=== PATIENT | female | born 1970 | race Caucasian/White ===

== ENCOUNTER 2019-03-22 14:49 | Inpatient (IN) ==
[2019-03-22] MEDS ORDERED: LEVAQUIN 500 MG/D5W 500 MG/100 ML IVPB IV SCH (17:00)
[2019-03-22] MEDS: DILAUDID IV PRN ×2 (17:48→23:59)
[2019-03-22] MEDS: NS 1,000 ML IV SCH (17:49)
--- NOTE | 2019-03-22 18:52 | CONSULTATION ---
DATE OF CONSULTATION: 03/22/2019 ATTENDING AND REFERRING PHYSICIAN: Radha Michel MD HISTORY OF PRESENT ILLNESS: This 49-year-old female states she has had intermittent flank pain for several days. She states that about 5 days ago she had pain and noted blood in the urine. She states she has been feeling worse over the last few days. She had a CT scan at another facility that revealed a moderate right hydroureteronephrosis down to a stone in the distal ureter about 3 mm in diameter. There was also perinephric stranding and possible right pyelonephritis. There were also bilateral lower lung infiltrates, consistent with possible pneumonia or sympathetic effusion from the right pyelonephritis. The patient states she feels a little better, but is still having intermittent flank pain. She states it is not as severe as it was. She denies any previous history of urological problems. She has had no kidney stones, previous blood in the urine, or problems with urinary tract infections. She has had no previous urologic surgery. PAST MEDICAL HISTORY: Migraine headaches, hypothyroidism. CURRENT MEDICATIONS: Documented on the chart. PAST SURGICAL HISTORY: Breast reduction surgery, breast biopsies, tonsillectomy, endometrial curettage for menorrhagia. SOCIAL HISTORY: No tobacco use. Occasional alcohol use. ALLERGIES: No known drug allergies. REVIEW OF SYSTEMS: She has no history of diabetes, hypertension, strokes, seizures, or pulmonary or bowel problems. PHYSICAL EXAMINATION: General: A normally developed, well-nourished, age- apparent, white female, oriented in all ways and cooperative. HEENT: Normal for age. Lungs: Clear. Cardiovascular: Regular rate and rhythm. Abdomen: Protuberant, soft, nontender. No hepatosplenomegaly or masses. Normal bowel sounds. Back: No CVA tenderness. Genitourinary: Exam is deferred until surgery. Extremities: No clubbing, cyanosis, or edema. Neurologic: No focal deficits. DIAGNOSTIC DATA: Laboratory evaluation is pending. IMPRESSION: Right distal ureteral stone with possible right pyelonephritis. Recommend cystoscopic exam, right ureteroscopy, and removal of the small stone if present and place right double-J stent. This planned procedure, benefits versus risks, and possible complications, including, but not limited to, bleeding, infection, not finding a stone, not being able to place the stent, and need for further surgery were discussed. She seems to understand and desires to proceed. cc: MD Bayron Faye MD MTDD
[2019-03-22] MEDS ORDERED: SODIUM CHLORIDE 0.9% INJ SCH (19:45)
[2019-03-22] MEDS: PEPCID IV SCH (19:59)
[2019-03-22] MEDS: ZOFRAN IV PRN ×2 (19:59→23:59)
--- NOTE | 2019-03-22 20:11 | HISTORY AND PHYSICAL ---
CHIEF COMPLAINT: Right flank pain, off and on for several days. HISTORY OF PRESENT ILLNESS: She is a 49-year-old white female, who came to our office for the last 1 week with the above symptoms. Flat/upright of the abdomen showed some constipation. No stones visible. Patient has elevated white cell count as well as blood in the urine. She was treated as an outpatient with ultrasound that showed moderate hydronephrosis on the right side. Subsequent CT renal stone search showed with moderate right hydronephrosis with pyelonephritis and 3 mm stone in the distal ureter. The patient was admitted to the hospital with IV antibiotics, IV fluids, and strained the urine. Urology consult on-call was obtained with Dr. Rincon. PAST MEDICAL HISTORY: Allergic rhinitis, hypothyroidism, metabolic syndrome, abnormal mammography, biopsy was negative in 2013. PAST SURGICAL HISTORY: Tonsillectomy, reduction mammoplasty, tubal ligation, MEDICINES: BuSpar 10 mg p.o. b.i.d., Synthroid 50 mcg daily, Xyzal 5 mg daily. ALLERGIES: Not known. SOCIAL HISTORY: , 2 kids. No smoking. Socially drinks alcohol. Living in [place]. 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 FAMILY HISTORY: Father of heart disease. Mom of car accident. Grandparents as maternal grandmother had breast cancer. HEALTH MAINTENANCE: Flu vaccine 2017. Mammography November 2017. Pap smear April 2014. REVIEW OF SYSTEMS: HEENT: No headache. No vision problem. No earache. No sore throat. Neck: No goiter. No lymphadenopathy. No bruit. Cardiopulmonary: No chest pain, shortness of breath, PND, orthopnea. Gastrointestinal: Right flank pain radiating to the groin. Musculoskeletal: No swelling of feet. No joint pain. Neurologic: No focal symptoms or weakness. PHYSICAL EXAMINATION: VITAL SIGNS: Temperature is 99.9 degrees, pulse is 87, blood pressure is 115/74. HEIGHT/WEIGHT: 5 feet 4 inches, 161 pounds. HEENT: Atraumatic, normocephalic. Pupils equal, reacting to light. TMs are normal. Nose and throat within normal limits. NECK: Supple. No lymphadenopathy. No goiter. CHEST: Bilateral air entry. HEART: Sounds are regular. ABDOMEN: Belly is soft. Tender in the right flank area. EXTREMITIES: No peripheral edema or cyanosis. NEUROLOGICAL: No obvious neurological deficits. INVESTIGATIONS: Still pending. ASSESSMENT AND PLAN: A 49-year-old white female admitted to the hospital with right-sided hydronephrosis with impending pyelonephritis with a distal 3 mm stone in the ureter. Plan is IV fluids, strain the urine, Dilaudid for pain, Zofran for nausea, and clear liquid diet, Dr. Rincon consult, and IV antibiotics with Levaquin, Flomax 0.4 mg daily, and reconcile home medications. We will follow up. cc: Bayron Michel MD MTDD
[2019-03-23] MEDS: NS 1,000 ML IV SCH (06:19)
[2019-03-23] MEDS: ZOFRAN IV PRN (06:19)
[2019-03-23] MEDS: DILAUDID IV PRN (06:20)
[2019-03-23] MEDS ORDERED: DIPRIVAN 1% ONE (07:28)
[2019-03-23] MEDS ORDERED: XYLOCAINE-MPF 2% ONE (07:29)
[2019-03-23 07:42] LABS: BASO# 0.04 X1000 (0.0-0.2); BASO% 0.3 % (0.0-0.8); EOS# 0.06 X1000 (0.0-0.7); EOS% 0.5 % (0.0-10.0); HEMATOCRIT 31.6 % (37.0-47.0); HEMOGLOBIN 10.7 g/dL (12.0-16.0); IMM GRAN# 0.15 X1000 (0.0-0.04); IMM GRAN% 1.1 % (0.0-0.5); LYMPH# 1.38 X1000 (1.2-3.4); LYMPH% 10.6 % (20.5-51.1); MCH 31.8 PG (27-31); MCHC 33.9 g/dL (33-37); MCV 93.8 FL (81-99); MONO# 1.78 X1000 (0.11-0.59); MONO% 13.6 % (1.7-9.3); MPV 10.6 FL (7.4-10.4); NEUT# 9.65 X1000 (1.4-6.5); NEUT% 73.9 % (42.2-75.2); PLT 268 X1000 (130-400); RBC 3.37 XMIL (4.2-5.4); RDW 12.6 % (11.5-14.5); WBC 13.06 X1000 (4.8-10.8)
[2019-03-23] MEDS ORDERED: TORADOL ONE (08:00)
[2019-03-23] MEDS ORDERED: DECADRON ONE (08:00)
[2019-03-23] MEDS ORDERED: ZOFRAN ONE (08:00)
[2019-03-23 08:13] LABS: AGAP 9; BUN 14 mg/dL (8-22); CALCIUM 8.4 mg/dL (8.8-10.2); CHLORIDE 100 mmol/L (98-107); COSMO 274; CREATININE 0.9 mg/dL (0.5-0.9); ESTIMATED GFR > 60; GLUCOSE 99 mg/dL (70-104); POTASSIUM 3.5 mmol/L (3.5-5.1); SODIUM 137 mmol/L (136-145); TCO2 28 mmol/L (25-35)
[2019-03-23] MEDS ORDERED: FLOMAX PO SCH (09:00)
[2019-03-23] MEDS ORDERED: DITROPAN PO PRN ×2 (09:17→09:19)
[2019-03-23] MEDS ORDERED: NORCO-7.5 PO PRN ×2 (09:18→09:26)
[2019-03-23] MEDS: PEPCID IV SCH (09:27)
--- NOTE | 2019-03-23 10:09 | OPERATIVE NOTE ---
PROCEDURE DATE: 03/23/2019 SURGEON: Dr. José Rincon. PREOPERATIVE DIAGNOSIS: Right flank pain and right pyelonephritis and right distal ureteral stone. POSTOPERATIVE DIAGNOSIS: Right flank pain and right pyelonephritis and spontaneously passed right ureteral stone. ANESTHESIA: General via laryngeal mask. PROCEDURE PERFORMED: Cystoscopic exam, right ureteroscopy, place right double-J stent. ANESTHESIA: General via laryngeal mask. FINDINGS: Cystoscopic exam: Urethra--greater than 21 Gambian, without strictures. Bladder-- normal ureteral orifices bilaterally. There is a cystocele, so the bladder has dropped somewhat. There are no papillary lesions, no trabeculations, no diverticula. Right ureteroscopy reveals edema just above the right ureterovesical junction with the ureter markedly dilated behind this area. The ureter was also very tortuous. There were no stones or stone fragments visualized from the ureterovesical junction all the way up to just below the ureteropelvic junction. The scope would not advance all the way into the renal pelvis because of a large loop the ureter took as part of its tortuosity. exam: Normal external female. Normal mucosa. Significant cystocele. Palpably normal cervix and uterus. No adnexal masses. There were large hemorrhoids noted. INDICATION FOR PROCEDURE: This 49-year-old female had right flank pain and significant fevers and not feeling well. A CT scan with oral and IV contrast revealed significant right hydroureteronephrosis down to a small stone in the distal ureter. DESCRIPTION OF PROCEDURE: After informed consent was obtained from the patient and her receiving IV antibiotics, she was taken to the main OR cystoscopy room, placed in the supine position. General anesthesia via laryngeal mask was achieved. She was then placed in the low lithotomy position, and prepped and draped in the usual sterile fashion for cystoscopic exam. A 21-Gambian sheath cystoscope was passed through the patient's urethra and into the bladder with findings as noted above. A 0.035 ZIPwire was passed through the cystoscope, engaged the right ureteral orifice, advanced up into the kidney. Again, the wire took a very tortuous path to be coiled into the kidney. The patient was placed in mild Trendelenburg position, and that helped straighten the ureter out. The cystoscope was removed leaving the ZIPwire in place. A 7-Gambian Storz semi-rigid ureteroscope was advanced to the patient's urethra and into the bladder. A 0.035 Sensor wire was passed through the ureteroscope and up into the ureter. The ureteroscope was advanced over the Sensor wire, but beneath the ZIPwire, and into the ureter. The ureter was carefully searched. No stone was seen. However it was very dilated behind an edematous area just above the ureterovesical junction. The scope was advanced up into the proximal ureter to just below the ureteropelvic junction. The scope would not negotiate the curve in the ureter. This scope was slowly removed. No stones were seen. The cystoscope was returned to the bladder over the ZIPwire. A 6-Gambian, 24 cm double-J stent was passed over the ZIPwire, and with some manipulation was able to straighten out the curved area of the proximal ureter, and the stent went up into the right kidney without difficulty. The bladder was drained. Cystoscope was removed. Stent removal string was securely taped to the lower abdomen. She tolerated the procedure well. Estimated blood loss was zero. She was taken to the recovery room in good condition. cc: MD Bayron Faye MD
[2019-03-23 11:37] VITALS: BP 117/78
--- NOTE | 2019-03-23 20:03 | DISCHARGE SUMMARY ---
ADMISSION DATE: 03/22/2019 DISCHARGE DATE: 03/23/2019 DISCHARGING DIAGNOSES: Right-sided flank pain due to 2 mm stone distal ureter with pyelonephritis. SECONDARY DIAGNOSES: 1. Hypothyroidism . 2. Hemorrhoids. 3. Cystocele. 4. Allergic rhinitis. 5. Chronic anxiety. CONSULTATIONS: Dr. Rincon. PROCEDURES: Cystoscopy and retrograde pyelogram with a double-J stent. BRIEF HISTORY: Please see the H and P that was done on 03/22. In brief, she is a 49-year-old white female who was admitted to the hospital with a 3-day history of right flank pain, constipation, nausea, and vomiting associated with a kidney stone at the distal ureter with pyelonephritis and elevated white cell count. The patient was given IV fluids, IV Levaquin, and Flomax. On the following day, Dr. Rincon did above procedures. Obviously, she passed a stone and placed a double-J stent. The patient is feeling a lot better. She was discharged home with the following instructions: 1. Outpatient Levaquin as described. 2. Zofran for nausea. 3. MiraLAX for constipation. 4. Remove the double-J stent next Monday with Dr. Rincon' office. 5. Synthroid 50 mcg daily. 6. Xyzal 5 mg daily. 7. BuSpar as needed. 8. Follow up in my office as well in 2 weeks. 9. Advised to avoid oxalate products. 10. Follow up. Appreciated Dr. Rincon' consult. cc: MD Dr. Sergey Salazar MTDRodrigue
--- NOTE | 2019-03-25 08:45 | Diag Imaging Result Doc PS360 ---
FLUROSCOPY CYSTO - 03/23/2019 INDICATION: RT STENT PLACEMENT TECHNIQUE: Fluoroscopy and multiple views of the abdomen. The exam was performed by the patient's urologist. Total fluoroscopy time was 20 seconds. 18 images were obtained. COMPARISON: None FINDINGS: There is oral contrast throughout the colon diffusely. There is wiring some indication of the right ureter and right renal collecting system. A right nephroureteral stent was placed in good position. IMPRESSION: No complication. Electronically signed by Mitchel Valencia 03/25/2019 8:42 AM
== END 2019-03-23 14:22 | disposition home or self-care (01) | DRG 661 ==
LOC: DIRADM 14:49 → 3N 15:51
PROVIDERS: ADMIT Internal Medicine; ATTEND Internal Medicine
CPT/HCPCS: 76000; 80048; 85025; 87088; A9270; J1100; J1170; J1885; J1956; J2405; J7030; S0028